=== PATIENT | female | born 1975 | race Caucasian/White ===

== ENCOUNTER 2020-07-12 06:55 | Day surgery (SDC) | payer BC, SELFPAY ==
[2020-07-09 09:23] LABS: BASOPHILS # (AUTO) 0.1 K/uL (0.00-0.22); BASOPHILS % (AUTO) 0.9 % (0.0-2.0); EOSINOPHILS % (AUTO) 0.6 % (0.0-4.0); HEMATOCRIT 39.1 % (36-48); HEMOGLOBIN 13.1 g/dL (12.0-16.0); LYMPHOCYTES # (AUTO) 1.1 K/uL (2.5-16.5); LYMPHOCYTES % (AUTO) 18.3 % (20.5-51.1); MEAN CORPUSCULAR HEMOGLOBIN 30 pg (27-31); MEAN CORPUSCULAR HGB CONC 34 g/dL (33-37); MEAN CORPUSCULAR VOLUME 87.9 fL (80-94); MONOCYTES # (AUTO) 0.4 K/uL (0.8-1.0); MONOCYTES % (AUTO) 6.4 % (1.7-9.3); NEUTROPHILS # (AUTO) 4.5 K/uL (1.8-7.7); NEUTROPHILS % (AUTO) 73.8 % (42.2-75.2); PLATELET COUNT (AUTO) 283 K/uL (140-450); RED BLOOD CELL COUNT(AUTO) 4.45 MIL/uL (4.20-5.40); RED CELL DISTRIBUTION WIDTH 13.7 % (11.6-13.7); WHITE BLOOD COUNT (AUTO) 6.1 K/uL (4.8-10.8)
[2020-07-09 09:33] LABS: ALBUMIN 3.4 g/dL (3.4-5.0); ANION GAP 8.2 (8-16); CARBON DIOXIDE 30.1 mmol/L (21-32); CREATININE 0.4 mg/dL (0.6-1.3); POTASSIUM 4.3 mmol/L (3.5-5.1); TOTAL BILIRUBIN 0.2 mg/dL (0.0-1.0)
[~2020-07-12] VITALS: Ht 157.5 cm; Wt 64.9 kg
[2020-07-12] MEDS ORDERED: BUPIVACAINE MPF 0.25% 10 ML VIAL INJ ONE (08:26)
[2020-07-12] MEDS ORDERED: SEVOFLURANE 250 ML BTL INH ONE (09:40)
[2020-07-12] MEDS ORDERED: MIDAZOLAM 2 MG/2 ML VIAL ONE (09:40)
[2020-07-12] MEDS ORDERED: MEPERIDINE 50 MG/ML SYR ONE (09:40)
[2020-07-12] MEDS ORDERED: KETOROLAC 30 MG/ML VIAL ONE (09:40)
[2020-07-12] MEDS ORDERED: PROPOFOL 200 MG/20 ML VIAL IV ONE (09:40)
[2020-07-12] MEDS ORDERED: fentaNYL citrate 0.05 MG/ML VIAL ONE (09:40)
[2020-07-12] MEDS ORDERED: MEPERIDINE 25 MG/ML SYR IVP PRN (10:15)
[2020-07-12] MEDS ORDERED: diphenhydrAMINE 50 MG/ML VIAL IVP PRN (10:15)
[2020-07-12] MEDS ORDERED: ONDANSETRON 4 MG/2 ML VIAL IVP PRN (10:15)
[2020-07-12] MEDS ORDERED: HYDROmorphone 1 MG/ML AMP IVP PRN ×2 (10:15→12:30)
[2020-07-12] MEDS ORDERED: LACTATED RINGERS 1,000 ML IV SCH (10:15)
[2020-07-12] MEDS ORDERED: ONDANSETRON 4 MG/2 ML VIAL IV PRN (12:30)
[2020-07-12] MEDS ORDERED: MORPHINE SULFATE 2 MG/ML SYR IVP PRN (12:30)
[2020-07-12] MEDS ORDERED: MORPHINE SULFATE 4 MG/ML SYR IV PRN (12:30)
== END 2020-07-12 12:43 | disposition home or self-care (01) ==
LOC: MDS 06:55 → MMU 07:10 → MDS 12:43
PROVIDERS: ATTEND Surgery
DX: N63.10 Unspecified lump in the right breast, unspecified quadrant (principal); D24.1 Benign neoplasm of right breast; F41.9 Anxiety disorder, unspecified; Z79.01 Long term (current) use of anticoagulants; Z79.899 Other long term (current) drug therapy
CPT/HCPCS: 19120; 36415; 71045; 80053; 81025; 85025; 87426; 93005; J0690; J3490; J7060; J7120; 88307; J1885; J2175; J2250; J2704; J3010